=== PATIENT | male | born 1960 | race Asian ===

== ENCOUNTER 2020-03-21 00:52 | Inpatient (IN) | payer OTHER ==
--- NOTE | 2020-03-21 02:00 | PDOC ---
History of Present Illness - General Chief Complaint: Blood Pressure Problem Stated Complaint: PRESSURE PROBLEM - History of Present Illness Initial Comments: 03/21/20 01:53 59yo M with no PMHx due to not consistent follow up and no PCP presents yary s/p reported fall at home w/ consequent syncope. He was walking into the bathroom when he felt dizzy and fell. He went down backwards and towards his Left side, hitting his posterior occiput and Left shoulder. Denies n/v, recent illness (fever, cough, sore throat), palpitations, chest pain, or diaphoresis. He denies similar past episodes. Denies vertiginous symptoms or hearing changes. Past History - Medical History Allergies/Adverse Reactions: Allergies Allergy/AdvReac Type Severity Reaction Status Date / Time No Known Allergies Allergy Verified 03/21/20 03:43 - Psycho-Social/Smoking History Smoking History: Never smoked Have you smoked in the past 12 months: No Information on smoking cessation initiated: No - Substance Abuse Hx (Audit-C & DAST Scrn) How often the patient has a drink containing alcohol: Never Score: In Men: 4 or > Positive; In Women: 3 or > Positive: 0 Screen Result (Pos requires Nsg. Audit-10AR): Negative In the last yr the pt used illegal drug/Rx for NonMed reason: No Score: Yes response is considered Positive: 0 Screen Result (Positive result requires Nsg. DAST-10): Negative Review of Systems - Review of Systems Able to Perform ROS?: Yes Is the patient limited Nauruan proficient: No Constitutional: No: Chills, Diaphoresis, Fever, Loss of Appetite HEENTM: No: Symptoms Reported, Nose Congestion, Tinnitus Respiratory: No: Cough, Shortness of Breath, SOB with Exertion, SOB at Rest Cardiac (ROS): Yes: Lightheadedness, Syncope. No: Chest Pain, Edema, Irregular Heart Rate, Palpitations, Chest Tightness ABD/GI: No: Abdominal Distended, Blood Streaked Bowels, Diarrhea, Nausea, Poor Appetite, Vomiting : No: Flank Pain, Hematuria, Incontinence, Pain Musculoskeletal: No: Back Pain Integumentary: Yes: Dryness. No: Bruising Neurological: No: Headache, Numbness, Seizure, Unsteady Gait Endocrine: No: Symptoms Reported Hematologic/Lymphatic: No: Symptoms Reported All Other Systems: Reviewed and Negative *Physical Exam - Vital Signs Last Vital Signs Temp Pulse Resp BP Pulse Ox 98.5 F 94 H 20 119/84 98 03/21/20 01:28 03/21/20 01:28 03/21/20 01:28 03/21/20 01:28 03/21/20 01:28 - Physical Exam General Appearance: Yes: Nourished, Appropriately Dressed, Disheveled. No: Apparent Distress, Alcohol on Breath HEENT: positive: EOMI, JESSIE, Normal ENT Inspection, Normal Voice. negative: Photophobia, Rhinorrhea Neck: positive: Trachea midline. negative: Tender Respiratory/Chest: positive: Lungs Clear, Normal Breath Sounds. negative: Chest Tender Cardiovascular: positive: Regular Rhythm, Regular Rate Gastrointestinal/Abdominal: positive: Normal Bowel Sounds, Soft Musculoskeletal: positive: Normal Inspection, Decreased Range of Motion (L elbow - cannot supinate/pronate L forearm). negative: CVA Tenderness Extremity: positive: Normal Capillary Refill, Normal Inspection, Normal Range of Motion, Tender (L forearm) Integumentary: positive: Normal Color, Dry, Warm Neurologic: positive: offal worker II-XII NML intact, Fully Oriented, Alert, Normal Mood/Affect, Normal Response. negative: Motor Strength 5/5 (4/5 strength L arm) ED Treatment Course - LABORATORY CBC & Chemistry Diagram: 03/21/20 01:53 03/21/20 01:53 - RADIOLOGY Radiology Studies Ordered: Category Date Time Status CXRPORT [CHEST X-RAY PORTABLE*] [RAD] Stat Radiology 03/21/20 01:51 Ordered Medical Decision Making - Medical Decision Making 03/21/20 04:32 59yo M no PMHx due to no follow up presents s/p fall and syncope. Cardiac workup and admit for syncope w/u. Head CT looking for bleed/intracranial mass. Discharge - Discharge Information Problems reviewed: Yes Clinical Impression/Diagnosis: Syncope and collapse Condition: Fair - Admission Yes - Follow up/Referral - Patient Discharge Instructions - Post Discharge Activity
[2020-03-21 02:04] LABS: BASO % 0.2 % (0-2.0); EOS % 0.1 % (0-4.5); HEMATOCRIT 44.2 % (35.4-49); HEMOGLOBIN 14.7 GM/dL (11.7-16.9); LYMPH % 13.5 % (8-40); MCHC 33.2 g/dl (32.0-35.9); MEAN CELL VOLUME 90.5 fl (80-96); MEAN PLT VOLUME 9.5 fl (7.5-11.1); MONO % 5.1 % (3.8-10.2); NEUT % 81.1 % (42.8-82.8); PLATELET COUNT 201 K/MM3 (134-434); RBC 4.88 M/mm3 (4.00-5.60); RDW 14.3 % (11.9-15.9)
[2020-03-21] MEDS ORDERED: ACETAMINOPHEN 1000 MG/100 ML VIAL (NON FORMULARY) IVPB ONE (02:08)
[2020-03-21 02:36] LABS: ALBUMIN 3.4 g/dl (3.4-5.0); ALK PHOS 93 U/L (45-117); ANION GAP 8 MMOL/L (8-16); BILIRUBIN,TOTAL 0.4 mg/dL (0.2-1); CALCIUM 8.9 mg/dL (8.5-10.1); CHLORIDE 108 mmol/L (98-107); CO2 22 mmol/L (21-32); CREATININE 1.1 mg/dL (0.55-1.3); GLUCOSE,RANDOM 126 mg/dL (74-106); N-TERMINAL BNP 11.4 pg/ml (5-125); POTASSIUM 5.2 mmol/L (3.5-5.1); SGOT/AST 30 U/L (15-37); SGPT/ALT 41 U/L (13-61); SODIUM 138 mmol/L (136-145)
--- NOTE | 2020-03-21 02:39 | PDOC ---
Attending Attestation - Resident Resident Name: Hammad Montejo - ED Attending Attestation I have performed the following: I have examined & evaluated the patient, The case was reviewed & discussed with the resident, I agree w/resident's findings & plan, Exceptions are as noted - HPI HPI: 03/21/20 07:00 See resident HPI - Physicial Exam PE: 03/21/20 07:00 Agree with documented exam - Medical Decision Making 03/21/20 07:00 Unwitnessed syncopal event w/o prodrome f/u labs, ct, ekg dispo per clinical course, likely admit Discharge - Discharge Information Problems reviewed: Yes Clinical Impression/Diagnosis: Syncope and collapse Condition: Fair - Follow up/Referral - Patient Discharge Instructions - Post Discharge Activity
[2020-03-21 02:42] LABS: INR 1.01 (0.83-1.09); PROTHROMBIN TIME (PATIENT) 11.9 SEC (9.7-13.0)
[2020-03-21 02:45] LABS: ACTIVATED PTT 36.6 SECONDS (25.2-36.5)
--- NOTE | 2020-03-21 03:51 | HP ---
CHIEF COMPLAINT: PCP: Dr. Jaxon Correa (hasnt seen him in years) HISTORY OF PRESENT ILLNESS: Mr. Dhillon is a 59M w a pmh of anxiety, paranoia, (son claims patient has possible diabetes and htn) BIBEMS for a complaint 1 episode of fainting at home. The patient is a poor historian and collateral information was collected from the patients son over the phone. The patient was reportedly sitting on the couch and had gotten up to go to the bathroom. The patients brother had heard a loud thud and found Mr. Dhillon unconscious on the ground of the bathroom. The patient had hit the back of his head during the fall. He had regained consciousness shortly after being found on the ground and was brought to the emergency department. The patient reports he is able to remember the incident. He endorses developing tunnel vision and becoming dizzy before the fall. The patient reports that he has mild pain on his left elbow and posterior aspect of his skull. The patient and son had confirmed this never happening before. Patient reportedly takes calcium, metformin, Haldol and zoloft on a daily basis according to his son. On presentation the patient appeared to word search and does not elaborate when questions are asked. He says he does not have a primary care physician that he sees and does not have any past medical history or takes any medications. He endorses feeling dizzy during the orthrostatics test, does not feel as if he is capable of sitting at the edge of the bed or standing up by himself. The patient denies n/v/abdominal pain/fever/chills/sob/chest pain/changes in bowel habits/ or neurological abnormalities Recent Travel: denies PAST MEDICAL HISTORY: PAST SURGICAL HISTORY: Social History: Smokinppd/20yrs Alcohol: no Drugs: no Allergies No Known Allergies Allergy (Verified 03/21/20 03:43) HOME MEDICATIONS: REVIEW OF SYSTEMS CONSTITUTIONAL: Absent: fever, chills, diaphoresis, generalized weakness, malaise, loss of appetite, weight change HEENT: pain on posterior head CARDIOVASCULAR: Absent: chest pain, syncope, palpitations, irregular heart rate, lightheadedness, peripheral edema RESPIRATORY: Absent: cough, shortness of breath, dyspnea with exertion, orthopnea, wheezing, stridor, hemoptysis GASTROINTESTINAL: Absent: abdominal pain, abdominal distension, nausea, vomiting, diarrhea, constipation, melena, hematochezia GENITOURINARY: Absent: dysuria, frequency, urgency, hesitancy, hematuria, flank pain, genital pain PHYSICAL EXAMINATION Vital Signs - 24 hr 03/21/20 01:28 Temperature 98.5 F Pulse Rate 94 H Respiratory 20 Rate Blood Pressure 119/84 O2 Sat by Pulse 98 Oximetry (%) GENERAL: Awake, alert, and fully oriented, in no acute distress. HEAD: abrasions on posterior aspect of head EYES: Pupils equal, round and reactive to light, extraocular movements intact, sclera anicteric, conjunctiva clear. No lid lag. LUNGS: Breath sounds equal, clear to auscultation bilaterally. No wheezes, and no crackles. No accessory muscle use. HEART: Regular rate and rhythm, normal S1 and S2 without murmur, rub or gallop. LOWER EXTREMITIES: 2+ pulses, warm, well-perfused. No calf tenderness. No peripheral edema. NEUROLOGICAL: Cranial nerves II-XII intact. Normal speech. Normal gait. Laboratory Results - last 24 hr 03/21/20 03/21/20 03/21/20 01:53 01:53 01:53 WBC 14.0 H RBC 4.88 Hgb 14.7 Hct 44.2 MCV 90.5 MCH 30.0 MCHC 33.2 RDW 14.3 Plt Count 201 MPV 9.5 Absolute Neuts (auto) 11.3 H Neutrophils % 81.1 Lymphocytes % 13.5 Monocytes % 5.1 Eosinophils % 0.1 Basophils % 0.2 Nucleated RBC % 0 PT with INR 11.90 INR 1.01 PTT (Actin FS) 36.6 H Sodium 138 Potassium 5.2 H Chloride 108 H Carbon Dioxide 22 Anion Gap 8 BUN 13.0 Creatinine 1.1 Est GFR (CKD-EPI)AfAm 85.31 Est GFR (CKD-EPI)NonAf 73.61 Random Glucose 126 H Calcium 8.9 Total Bilirubin 0.4 AST 30 ALT 41 Alkaline Phosphatase 93 Creatine Kinase 258 Creatine Kinase Index 1.1 CK-MB (CK-2) 3.0 Troponin I < 0.02 B-Natriuretic Peptide 11.4 Total Protein 7.0 Albumin 3.4 ASSESSMENT/PLAN: Mr. Dhillon is a 59M w a pmh of anxiety, paranoia, (son claims patient has possible diabetes and htn) BIBEMS for a complaint 1 episode of fainting at home admitted for syncope work up. # syncope - Negative orthostatics - admit to tele - consult cardiology - EKG shows small ST wave elevations in V5 <2mm without evidence in reciprocal leads - carotid dopplar - echo - follow troponins - fall precautions - Negative Head CT - NS at 83 - TSH #DVTppx - Heparin Sq #FEN - Sodium controlled diet - elevated K - hemolyzed - will follow morning labs ATTENDING PHYSICIAN STATEMENT I saw and evaluated the patient. I reviewed the resident's note and discussed the case with the resident. I agree with the resident's findings and plan as documented. SUBJECTIVE: OBJECTIVE: ASSESSMENT AND PLAN:
[2020-03-21] MEDS ORDERED: ACETAMINOPHEN INJECTION 100 ML IVPB ONE (04:28)
--- OUTSIDE RECORDS SUMMARY | 2020-03-21 04:56 | XMS ---
:1960 Author Organization [facility] Support Name Relationship Address Phone PALOMA STAMPING Unavailable [address] [phone] [place] [address] ZAKI COTTO UNKNOWN [address] [facility] [address] [address] Re-disclosure Warning The records that you are about to access may contain information from federally- assisted alcohol or drug abuse programs. If such information is present, then the following federally mandated warning applies: This information has been disclosed to you from records protected by federal confidentiality rules (42 CFR part 2). The federal rules prohibit you from making any further disclosure of this information unless further disclosure is expressly permitted by the written consent of the person to whom it pertains or as otherwise permitted by 42 CFR part 2. A general authorization for the release of medical or other information is NOT sufficient for this purpose. The Federal rules restrict any use of the information to criminally investigate or prosecute any alcohol or drug abuse patient.The records that you are about to access may contain highly sensitive health information, the redisclosure of which is protected by Article 27-F of the [facility] Public Health law. If you continue you may haveaccess to information: Regarding HIV / AIDS; Provided by facilities licensed or operated by the [facility] Office of Mental Health; or Provided by the [facility] Office for People With Developmental Disabilities. If such information is present, then the following [facility] mandated warning applies: This information has been disclosed to you from confidential records which are protected by state law. State law prohibits you from making any further disclosure of this information without the specific written consent of the person to whom it pertains, or as otherwise permitted by law. Any unauthorized further disclosure in violation of state law may result in a fine or mcfp sentence or both. A general authorization for the release of medical or other information is NOT sufficient authorization for further disclosure. Insurance Providers Payer name Policy type Policy ID Covered Covered green party's Policy P tanya / Coverage green party ID relationship to Cool Inf ormation type cool SELF PAY SP INSURANCE
--- NOTE | 2020-03-21 05:02 | PN ---
Teaching Attending Note Name of Resident: Luiz Wang ATTENDING PHYSICIAN STATEMENT I saw and evaluated the patient. I reviewed the resident's note and discussed the case with the resident. I agree with the resident's findings and plan as documented. SUBJECTIVE: 59 Y/O M with no PMHx and poor follow up came in w/ c/c dizziness and Syncope x1 episode . OBJECTIVE: VS: Afeb HR 94 BP 119/84 Labs: WBC 14 H/H wnl K 5.2 hemolyzed Na 138 Glucose [address] Head- no evidence of acute pathology ASSESSMENT AND PLAN: Syncope- Vasovagal vs Orthostatic vs Cardiac etiology Telemetry EKG , Trop x 3 Q 6 hr Orthostatic VS TSH TTE IV LR @ 83 cc/hr Repeat WBC - asymptomatic no abx for now Supp care: DVT Px HSQ 5K BID Diet regular
--- OUTSIDE RECORDS SUMMARY | 2020-03-21 05:08 | XMS ---
:1960 Author Organization [facility] Support Name Relationship Address Phone PALOMA STAMPING Unavailable [address] [place] [address] ZAIK COTTO UNKNOWN [address] [facility] [address] [address] Re-disclosure Warning The records that you are [...] protected by Article 27-F of the [facility] Public Health law. If you continue you may haveaccess to information: Regarding HIV / AIDS; Provided by facilities licensed or operated by the [facility] Office of Mental Health; or Provided by the [facility] Office for People With Developmental Disabilities. If such information is present, then the following [facility] mandated warning applies: This information has been [...] law may result in a fine or retirement sentence or both. A general authorization for the release of medical or other information is NOT sufficient authorization for further disclosure. Insurance Providers Payer name Policy type Policy ID Covered Covered democrat's Policy P tanya / Coverage democrat ID relationship to Cool Inf ormation type cool SELF PAY SP INSURANCE
[2020-03-21 05:35] VITALS: BMI 24.3
[2020-03-21] MEDS: HEPARIN NA (PORCINE) 5,000 UNITS/ML 1ML VIAL SQ SCH ×3 (05:52→23:11)
[2020-03-21] MEDS: SODIUM CHLORIDE 1,000 ML IV SCH (05:52)
--- NOTE | 2020-03-21 09:06 | CON.CARD ---
Consult Consult Specialty:: Cardiology Referred by:: Hospitalist Medicine Reason for Consultation:: Syncope - History of Present Illness Chief Complaint: Syncope History of Present Illness: 59yo M with pmh of anxiety, paranoia, DM2, hyperlipidemia presented with syncope and fall. He was walking into the bathroom when he felt dizzy, developed tunnel vision and fell. He went down backwards and towards his Left side, hitting his p osterior occiput and Left shoulder, subjective orthostasis on exam, nausea and emesis earlier. Denies palpitations, chest pain, or diaphoresis. He denies similar past episodes. Denies vertiginous symptoms or hearing changes. - History Source History Provided By: Patient Limitations to Obtaining History: No Limitations - Smoking History Smoking history: Current every day smoker Have you smoked in the past 12 months: Yes Aproximately how many cigarettes per day: 10 Home Medications - Allergies Allergies/Adverse Reactions: Allergies Allergy/AdvReac Type Severity Reaction Status Date / Time No Known Allergies Allergy Verified 03/21/20 03:43 - Home Medications Home Medications: Ambulatory Orders Atorvastatin Ca [Lipitor] 40 mg PO HS 03/21/20 Haloperidol [Haldol -] 0.5 mg PO BID 03/21/20 Metformin HCl [Glucophage] 500 mg PO 03/21/20 Sertraline HCl 25 mg PO 03/21/20 Review of Systems - Review of Systems Eyes: reports: Other (Visual scotoma) Gastrointestinal: reports: Nausea, Vomiting Neurological: reports: Syncope Vital Signs: Vital Signs Temperature 98.6 F 03/21/20 05:26 Pulse Rate 90 03/21/20 05:26 Respiratory Rate 18 03/21/20 05:26 Blood Pressure 120/87 03/21/20 05:26 O2 Sat by Pulse Oximetry (%) 98 03/21/20 05:28 Constitutional: Yes: No Distress, Calm Neck: Yes: Supple Respiratory: Yes: Regular, CTA Bilaterally, On Nasal O2 Gastrointestinal: Yes: Soft, Hypoactive Bowel Sounds Cardiovascular: Yes: Regular Rate and Rhythm JVD: No Carotid Bruit: No Heart Sounds: Yes: S1, S2 Edema: No - Other Data Labs, Other Data: CBC, BMP 03/21/20 01:53 03/21/20 01:53 INR, PTT INR 1.01 (0.83-1.09) 03/21/20 01:53 Troponin, BNP 03/21/20 01:53 Troponin I < 0.02 B-Natriuretic Peptide 11.4 Troponin, BNP 03/21/20 01:53 Troponin I < 0.02 B-Natriuretic Peptide 11.4 NSR @ [address] changes Tele: NSR Imaging - Results Chest X-ray: Report Reviewed (NAD) Cat Scan: Report Reviewed (HCT: No bleed) Problem List - Problems (1) Hyperlipidemia Code(s): E78.5 - HYPERLIPIDEMIA, UNSPECIFIED Qualifiers: Hyperlipidemia type: pure hypercholesterolemia Qualified Code(s): E78.00 - Pure hypercholesterolemia, unspecified; E78.0 - Pure hypercholesterolemia (2) Type 2 diabetes mellitus Code(s): E11.9 - TYPE 2 DIABETES MELLITUS WITHOUT COMPLICATIONS Qualifiers: Diabetes mellitus superintendent marine oil terminal insulin use: without halfway use Diabetes mellitus complication status: without complication Qualified Code(s): E11.9 - Type 2 diabetes mellitus without complications (3) Syncope and collapse Code(s): R55 - SYNCOPE AND COLLAPSE Assessment/Plan 03/21/2020 Echo: Normal biventricular size and fxn, mod LAE, mild MR, TR 1. Syncope orthostatic hypotension vs vasovagal with typical prodrome including nausea/emesis, arrhythmias less likely 2. Type 2 DM 3. Hyperlipidemia P:1. Volume resuscitation as you are 2. lunchroom monitor for bradyarrhythmia/pauses 3. Addressed abortive maneuvers once prodromal sxs have been experienced 4. Anticipate d/c in AM 5. Thank you for consultative opportunity
[2020-03-21] MEDS ORDERED: ONDANSETRON 4 MG/2 ML VIAL ONE (09:38)
[2020-03-21] MEDS ORDERED: ONDANSETRON 4 MG/2 ML VIAL IVPUSH ONE (09:45)
[2020-03-21 10:19] LABS: HEMATOCRIT 45.6 % (35.4-49); HEMOGLOBIN 14.8 GM/dL (11.7-16.9); MCHC 32.4 g/dl (32.0-35.9); MEAN CELL VOLUME 89.5 fl (80-96); MEAN PLT VOLUME 9.1 fl (7.5-11.1); PLATELET COUNT 232 K/MM3 (134-434); RDW 14.6 % (11.9-15.9); WHITE BLOOD COUNT 12.3 K/mm3 (4.0-10.0)
--- NOTE | 2020-03-21 10:28 | EKG ---
Test Reason : Blood Pressure : / mmHG Vent. Rate : 087 BPM Atrial Rate : 087 BPM P-R Int : 162 ms QRS Dur : 072 ms QT Int : 378 ms P-R-T Axes : 061 048 047 degrees QTc Int : 454 ms NORMAL SINUS RHYTHM NONSPECIFIC ST ABNORMALITY ABNORMAL ECG WHEN COMPARED WITH ECG OF 21-MAR-2020 01:39, NO SIGNIFICANT CHANGE WAS FOUND Confirmed by EYAD JOHNSON MD ([id number]) on 03/21/2020 10:28:04 AM Referred By: Confirmed By:EYAD JOHNSON MD
--- NOTE | 2020-03-21 10:31 | EKG ---
Test Reason : Blood Pressure : / mmHG Vent. Rate : 092 BPM Atrial Rate : 092 BPM P-R Int : 144 ms QRS Dur : 074 ms QT Int : 342 ms P-R-T Axes : 035 061 048 degrees QTc Int : 422 ms NORMAL SINUS RHYTHM ST ELEVATION, CONSIDER EARLY REPOLARIZATION, PERICARDITIS, OR INJURY ABNORMAL ECG Confirmed by EYAD JOHNSON MD ([id number]) on 03/21/2020 10:30:36 AM Referred By: Confirmed By:EYAD JOHNSON MD
[2020-03-21 10:48] LABS: ALBUMIN 3.3 g/dl (3.4-5.0); ALK PHOS 99 U/L (45-117); ANION GAP 7 MMOL/L (8-16); BILIRUBIN,TOTAL 0.5 mg/dL (0.2-1); BLOOD UREA NITROGEN 10.1 mg/dL (7-18); CALCIUM 8.6 mg/dL (8.5-10.1); CHLORIDE 107 mmol/L (98-107); CHOLESTEROL 105 mg/dL (50-200); CO2 22 mmol/L (21-32); CREATININE 0.9 mg/dL (0.55-1.3); GLUCOSE,RANDOM 129 mg/dL (74-106); HDL CHOLESTEROL 38 mg/dL (40-60); LDL CHOLESTEROL (ONLY SJRH) 60 mg/dL (5-100); MAGNESIUM 2.5 mg/dL (1.8-2.4); PHOSPHOROUS 2.7 mg/dL (2.5-4.9); POTASSIUM 4.1 mmol/L (3.5-5.1); SGOT/AST 26 U/L (15-37); SGPT/ALT 38 U/L (13-61); SODIUM 136 mmol/L (136-145); TOT PROT 6.9 g/dl (6.4-8.2); TRIGLYCERIDES 79 mg/dL (0-150)
--- NOTE | 2020-03-21 11:51 | PN ---
Teaching Attending Note Name of Resident: Lanny Millan ATTENDING PHYSICIAN STATEMENT I saw and evaluated the patient. I reviewed the resident's note and discussed the case with the resident. I agree with the resident's findings and plan as documented. SUBJECTIVE: No fever or chills at home or in hospital. has nausea and vomiting after breakf astt delaney. No GUERRERO , no abd pain, denies dysuria or polyuria. has no Cp , no SOB, no change in vision or GUERRERO. has no weakness. he remembers havign tunnel vision before syncope. brother found him , ? 20 min later. No previous syncopal episodes, no clear medical follow up or medical hx. he feels very light headed when he was asked to sit up and started vomiting during interview. no vertigo. has pain in L elbow. OBJECTIVE: pale, sweaty , poor dentition, missing teeth. awake all the time. got light headed with sitting up and started vomiting. (non bloody non bilious emesis ) MMM. unicteric sclera. CV: RRR, no MRG Lungs: CTAB ABd: decreased bowel sounds in all quadrants. NT, ND. Ext : No edema or erythema on upper or lower extremitis . Neuro: EOMI, no facial droop, nl facial sensation , round pupils. tongue at mid line. Strength: RUE: 5/5 shoulder shrug, shoulder abduction and flexion, biceps, and triceps, and normal hand hydraulic jack adjuster. LUE: 5/5 shoulder shrug. limited mobility to LUE due to elbow pain, hand hydraulic jack adjuster normal . reflexes 2+ bicep, BR, knee jerk B/L. Nl nose to finger ASSESSMENT AND PLAN: 59 y/o man with unclear medical history and no medical follow up who presented with syncopal episode while walking [place] at night . 1- Syncope, most likely diagnosis is orthostatic hypotension ( happened after getting up at night, got dizzy with siting up today ) . vasovagal and arrhythmias are less likely. need to r/o arrhythmias. doubt seizure or stroke Was unable to obtain orthostatis VS during interview due to vomiting and severe light headedness. - give IVF. - perform Orthostatic VS - echo pending - cont tele monitoring - EKG done during interview, which showed J point elevation in V4,5,6. nl axis, sinus rhythm. EKG on admisison reviewd, also withJ point elevation - repeat trop- CUS pending. 2- N/V : Not sure of etiology. BS are hypoactive, need to r/o ileus. doubt any systemic infection . EKG with no change and ACS is unlikely. - give IVF. -liquid diet for now. - obtain KUB. - monitor 3- Leukocysotsis : no source of infection. might be stress induced . - follow off Abx. - perform UA 4- Hyperkalemia: unclear etiology. - check CPK - repeat K level 5- A1c : 6, ---> pre-diabetes dispo : HLOC. Team Will speak to son and obtain more history about meds, PMH, and other info regarding presentation
--- NOTE | 2020-03-21 13:00 | ECHO ---
Version: 1 Name: ADITYA COTTO Exam: Adult Echocardiogram Study Date: 03/21/2020, 12:09 PM Age: 59 Years MMode/2D Measurements & Calculations IVSd: 1.01 cm LVIDs: 2.6 cm LVIDd: 3.8 cm LVPWd: 0.94 cm LAV (MOD-bp): 54.0 ml ACS: 1.65 cm Ao root diam: 3.0 cm LVOT diam: 2.08 cm LA dimension: 4.1 cm Doppler Measurements & Calculations MV E max chilango: 74.5 cm/sec Med E/e': 10.1 MV A max chilango: 68.1 cm/sec Med Peak E' Chilango: 7.4 cm/sec MV E/A: 1.09 Lat E/e': 6.9 Lat Peak E' Chilango: 10.8 cm/sec Ao max P.7 mmHg LAUREL(I,D): 2.48 cm Ao mean P.4 mmHg LV V1 mean: 62.2 cm/sec Ao V2 max: 129.0 cm/sec LV V1 mean P.86 mmHg PI end-d chilango: 92.3 cm/sec TR max chilango: 206.8 cm/sec TR max P.3 mmHg Left Ventricle Left ventricular systolic function is grossly normal. Ejection Fraction = 55-60%. The transmitral sp ectral Doppler flow pattern is normal for age. Right Ventricle The right ventricle is grossly normal size. The right ventricular systolic function is grossly thomas l. Atria The left atrium is moderately dilated. Right atrial size is normal. Mitral Valve There is no mitral valve stenosis. There is mild mitral regurgitation. Tricuspid Valve The tricuspid valve is normal in structure and function. There is mild tricuspid regurgitation. Righ t ventricular systolic pressure is normal. Aortic Valve There is mild aortic sclerosis.;. No hemodynamically significant valvular aortic stenosis. No aortic regurgitation is present. Pulmonic Valve There is no pulmonic valvular stenosis. Trace pulmonic valvular regurgitation. Great Vessels The aortic root is normal size. Normal IVC size and contractility. Pericardium/Pleura There is no pericardial effusion. Tech Comments TDS due to orientation of patient's heart. Summary Statements Left ventricular systolic function is grossly normal. Ejection Fraction = 55-60%. The left atrium is moderately dilated. There is mild mitral regurgitation. There is mild tricuspid regurgitation. Right ventricular systolic pressure is normal. There is mild aortic sclerosis.; The aortic root is normal size. There is no pericardial effusion. MD Parry *Miguel Angel 03/21/2020, 12:59 PM Ordering Physician: Keara Suarez Referring Physician: KEARA SUAREZ Performed By: Rebecca Baez
[2020-03-21] MEDS ORDERED: ACETAMINOPHEN 325 MG TABLET (FP) ONE (14:29)
[2020-03-21] MEDS ORDERED: ACETAMINOPHEN 325 MG TABLET (FP) PO PRN (14:53)
--- NOTE | 2020-03-21 15:55 | PN ---
Physical Exam: SUBJECTIVE: Patient seen and examined at bedside, denies any prior episodes of syncope, reports that he had LOC for 10-15 min. During examination, patient had dizziness and nausea on sitting up, but was not able to get orthostatic due to vomiting. Patient is a poor historian. Called his son ZAKI for further information: per son, his farther lives with his mother and brother at home. uncle heard two loud noises in the upstairs bathroom. He ran upstairs and the bathroom door was locked. Uncle kicked opened the bathroom door and found his dad on the floor. Uncle was able to wake him up and place him on a chair. per uncle, his father reported head trauma and the EMS was called. Son received a call from the uncle regarding the event. Son also reports that his father was diagnosed with paranoid schizophrenia for 18 years and was treated with multiple antipsychotic medications (risperidone, aripiprazole and Benztropine for most likely EPS) until he started seeing another Psychiatrist at [facility], who thought the diagnosis was not accurate(only mild form for paranoia). Changed his medications to Haldol only. He started taking haldol 6 months ago. Son reports initially he was treated with a high dose of haldol and subsequently, he experienced nausea/vomiting, light headedness and anxiety. Symptoms resolved after decreasing the dose of haldol. He was on haldol and zoloft for 3 months and was not able to make an appointment for the last 2 moths to fill his prescriptions, due to COVID-19. He started taking Haldol and zoloft again 1 week ago, Last visit March 15. OBJECTIVE: Vital Signs Period Temp Pulse Resp BP Sys/Hernandez Pulse Ox Last 24 Hr 98.2 F-99.0 F 79-98 18-20 119-134/83-87 95-99 GENERAL: The patient is awake, alert, and fully oriented. Poor dentition HEAD: Normal with no signs of trauma. EYES: PERRL, extraocular movements intact, sclera anicteric, conjunctiva clear. No ptosis, facial droop ENT: Ears normal, nares patent, oropharynx clear without exudates, moist mucous membranes. NECK: Trachea midline, full range of motion, supple. LUNGS: Breath sounds equal, clear to auscultation bilaterally, no wheezes, no crackles, no accessory muscle use. HEART: Regular rate and rhythm, S1, S2 without murmur, rub or gallop. ABDOMEN: Soft, nontender, nondistended, hypoactive bowel sounds, no guarding, no rebound, no hepatosplenomegaly, no masses. EXTREMITIES: 2+ pulses, warm, well-perfused, no edema. NEUROLOGICAL: Cranial nerves II through XII grossly intact. Normal speech, gait not observed. strength 5/5 in all extremities PSYCH: Normal mood, normal affect. SKIN: Warm, dry,generalized pale skin, no rashes or lesions noted Laboratory Results - last 24 hr 03/21/20 03/21/20 03/21/20 01:53 01:53 01:53 WBC 14.0 H RBC 4.88 Hgb 14.7 Hct 44.2 MCV 90.5 MCH 30.0 MCHC 33.2 RDW 14.3 Plt Count 201 MPV 9.5 Absolute Neuts (auto) 11.3 H Neutrophils % 81.1 Lymphocytes % 13.5 Monocytes % 5.1 Eosinophils % 0.1 Basophils % 0.2 Nucleated RBC % 0 PT with INR 11.90 INR 1.01 PTT (Actin FS) 36.6 H Sodium 138 Potassium 5.2 H Chloride 108 H Carbon Dioxide 22 Anion Gap 8 BUN 13.0 Creatinine 1.1 Est GFR (CKD-EPI)AfAm 85.31 Est GFR (CKD-EPI)NonAf 73.61 Random Glucose 126 H Hemoglobin A1c % Calcium 8.9 Phosphorus Magnesium Total Bilirubin 0.4 AST 30 ALT 41 Alkaline Phosphatase 93 Creatine Kinase 258 Creatine Kinase Index 1.1 CK-MB (CK-2) 3.0 Troponin I < 0.02 B-Natriuretic Peptide 11.4 Total Protein 7.0 Albumin 3.4 Triglycerides Cholesterol Total LDL Cholesterol HDL Cholesterol TSH 03/21/20 03/21/20 03/21/20 09:48 09:48 09:48 WBC 12.3 H RBC 5.10 Hgb 14.8 Hct 45.6 MCV 89.5 MCH 29.0 MCHC 32.4 RDW 14.6 Plt Count 232 MPV 9.1 Absolute Neuts (auto) Neutrophils % Lymphocytes % Monocytes % Eosinophils % Basophils % Nucleated RBC % PT with INR INR PTT (Actin FS) Sodium 136 Potassium 4.1 Chloride 107 Carbon Dioxide 22 Anion Gap 7 L BUN 10.1 Creatinine 0.9 Est GFR (CKD-EPI)AfAm 108.73 Est GFR (CKD-EPI)NonAf 93.82 Random Glucose 129 H Hemoglobin A1c % 6.0 Calcium 8.6 Phosphorus 2.7 Magnesium 2.5 H Total Bilirubin 0.5 AST 26 ALT 38 Alkaline Phosphatase 99 Creatine Kinase 454 H Creatine Kinase Index 0.7 CK-MB (CK-2) 3.5 Troponin I < 0.02 B-Natriuretic Peptide Total Protein 6.9 Albumin 3.3 L Triglycerides 79 Cholesterol 105 Total LDL Cholesterol 60 HDL Cholesterol 38 L TSH 0.65 Active Medications Generic Name Dose Route Start Last Admin Trade Name Freq PRN Reason Stop Dose Admin Acetaminophen 650 mg 03/21/20 14:53 Tylenol - PO Q6H PRN PAIN LEVEL 4 - 6 Heparin Sodium (Porcine) 5,000 unit 03/21/20 06:00 03/21/20 13:21 Heparin - SQ 5,000 unit TID RAUDEL Administration Sodium Chloride 1,000 mls @ 83 mls/hr 03/21/20 05:30 03/21/20 05:52 Normal Saline - IV 83 mls/hr ASDIR RAUDEL Administration ASSESSMENT/PLAN: 59 Y M w a PMH of anxiety, paranoia, HLD, and pre-Diabetes(home med: metformin), presents s/p unwitnessed fall and admitted for a syncope work up. # syncope - Likely due to Orthostatic hypotention vs antipsychotic medical regimen Haldol (adverse effect) - Patient started to feel lightheadedness vomited multiple times, NBNB when he was sitting up from laying down - Unable to obtain Orthostatic vitals due to active nausea and vomiting - cardiology, Dr. Dos Santos, is following - EKG shows: NSR with J point elevation in V4,5,6. trop negative x 2 - carotid Doppler and Echo: pending - Head CT: no acute pathology #Nausea/vomiting - Unclear etiology, likely an adverse effect of Haldol (recently re-started), prior nausea/vomiting due to high dose of haldol, per son - Ordered KUB, patient did not want to go to imaging - will continue IVF, and monitor electrolytes #Hx of Paranoia #Anxiety - Home meds: Haldol 0.5 mg BID, Zoloft 25mg QD - Consulted Psych for further recs regarding his medical regimen #Hx of HLD - Continue Lipitor 40 mg QD #Hx of pre-Diabetes - holding home med for now(metformin 500mg QD) - HbA1c 6.0 DVTppx - Heparin Sq FEN - NS @83 mls/hr - Will continue to monitor electrolytes - Full liquid diet for now, vomiting Dispo - will continue to monitor in Tele Visit type - Emergency Visit Emergency Visit: Yes ED Registration Date: 03/21/20 Care time: The patient presented to the Emergency Department on the above date and was hospitalized for further evaluation of their emergent condition. - New Patient This patient is new to me today: No - Critical Care Critical Care patient: No - Discharge Referral Referred to [facility] Med P.C.: No ATTENDING PHYSICIAN STATEMENT I saw and evaluated the patient. I reviewed the resident's note and discussed the case with the resident. I agree with the resident's findings and plan as documented. SUBJECTIVE: OBJECTIVE: ASSESSMENT AND PLAN:
[2020-03-21 16:25] LABS: PH,URINE 5.5 (5.0-8.0); URINE APPEARANCE CLEAR; URINE BILIRUBIN NEGATIVE (NEGATIVE); URINE COLOR YELLOW; URINE GLUCOSE (UA) NEGATIVE (NEGATIVE); URINE KETONE TRACE (NEGATIVE); URINE LEUK ESTERASE NEGATIVE (NEGATIVE); URINE NITRITE NEGATIVE (NEGATIVE); URINE PROTEIN NEGATIVE (NEGATIVE); URINE UROBILINOGEN 0.2 mg/dL (0.2-1.0)
[2020-03-21 16:38] LABS: COCAINE, UR NEGATIVE ng/ml (CUTOFF=300); PHENCYCLIDINE,URINE NEGATIVE ng/ml (CUTOFF=25); URINE AMPHETAMINES NEGATIVE ng/ml (CUTOFF=500); URINE BARBITURATES NEGATIVE ng/ml (CUTOFF=200); URINE BENZODIAZEPINES NEGATIVE ng/ml (CUTOFF=200)
[2020-03-21 17:21] LABS: METHADONE, UR NEGATIVE ng/ml (CUTOFF=300); OPIATES, URI NEGATIVE ng/ml (CUTOFF=300)
[2020-03-21] MEDS: SERTRALINE HCL 25 MG TABLET (FP) PO SCH (17:47)
[2020-03-21] MEDS ORDERED: PT OWN MED DRAWER 7, Y5N ONE ×2 (17:48→22:40)
[2020-03-21] MEDS: HALOPERIDOL 0.5 MG TABLET PO SCH (23:10)
[2020-03-21] MEDS: ATORVASTATIN CA 40 MG TABLET (FP) PO SCH (23:11)
--- NOTE | 2020-03-22 01:05 | PN ---
Progress Note (short form) - Note Progress Note: Patient examined at bedside status post- brain MRI. Patient reports no further episodes of vomiting. States he is feeling better with improvement of lightheadedness. Phys exam: Gen: lying in bed in no acute distress Neuro: No dysdiadokinesia/ dysmetria. Sensation intact throughout. Motor exam WNL. CN2-12 wnl. MRI brain: Evaluation is somewhat limited due to persistent motion artifact (secondary to claustrophobia as per the MRI staff). There is no definite MRI ev idence of acute infarction. A very small acute infarct may not be demonstrable on this exam due to motion artifact. If clinically indicated correlate with follow-up MRI possibly utilizing sedation. No gross mass lesion is identified within the limitations of the study. There is no obstructive hydrocephalus
[2020-03-22] MEDS: SODIUM CHLORIDE 1,000 ML IV SCH (06:42)
[2020-03-22 06:59] LABS: BASO % 0.2 % (0-2.0); EOS % 0.4 % (0-4.5); HEMATOCRIT 40.4 % (35.4-49); HEMOGLOBIN 13.5 GM/dL (11.7-16.9); LYMPH % 33.3 % (8-40); MCH 29.8 pg (25.7-33.7); MCHC 33.5 g/dl (32.0-35.9); MEAN PLT VOLUME 9.1 fl (7.5-11.1); MONO % 9.3 % (3.8-10.2); NEUT % 56.8 % (42.8-82.8); PLATELET COUNT 191 K/MM3 (134-434); RBC 4.54 M/mm3 (4.00-5.60); RDW 14.7 % (11.9-15.9); WHITE BLOOD COUNT 8.5 K/mm3 (4.0-10.0)
[2020-03-22] MEDS: HEPARIN NA (PORCINE) 5,000 UNITS/ML 1ML VIAL SQ SCH ×3 (07:03→22:05)
[2020-03-22 07:25] LABS: ALBUMIN 2.9 g/dl (3.4-5.0); BILIRUBIN,TOTAL 0.5 mg/dL (0.2-1); CALCIUM 8.2 mg/dL (8.5-10.1); CREATININE 0.7 mg/dL (0.55-1.3); MAGNESIUM 2.4 mg/dL (1.8-2.4); PHOSPHOROUS 2.6 mg/dL (2.5-4.9); POTASSIUM 3.7 mmol/L (3.5-5.1); TOT PROT 6.2 g/dl (6.4-8.2)
[2020-03-22] MEDS ORDERED: PT OWN MED DRAWER 7, Y5N ONE ×3 (09:21→22:03)
[2020-03-22] MEDS: SERTRALINE HCL 25 MG TABLET (FP) PO SCH (10:30)
--- NOTE | 2020-03-22 10:37 | PN ---
Progress Note, Physician Chief Complaint: Events noted Not in distress History of Present Illness: Patient was seen and examined. Awake and alert. Chart was reviewed Denies chest pain, SOB or palpitations - Current Medication List Current Medications: Active Medications Acetaminophen (Tylenol -) 650 mg PO Q6H PRN PRN Reason: PAIN LEVEL 4 - 6 Last Admin: 03/21/20 15:01 Dose: 650 mg Documented by: Atorvastatin Calcium (Lipitor -) 40 mg PO HS [facility] Last Admin: 03/21/20 23:11 Dose: 40 mg Documented by: Haloperidol (Haldol -) 0.5 mg PO BID [facility] Last Admin: 03/21/20 23:10 Dose: 0.5 mg Documented by: Heparin Sodium (Porcine) (Heparin -) 5,000 unit SQ TID [facility] Last Admin: 03/22/20 07:03 Dose: 5,000 unit Documented by: Sodium Chloride (Normal Saline -) 1,000 mls @ 83 mls/hr IV ASDIR [facility] Last Admin: 03/22/20 06:42 Dose: Not Given Documented by: Sertraline HCl (Zoloft -) 25 mg PO DAILY [facility] Last Admin: 03/22/20 10:30 Dose: 25 mg Documented by: - Objective Vital Signs: Vital Signs Temperature 98.5 F 03/22/20 02:00 Pulse Rate 69 03/22/20 06:00 Respiratory Rate 18 03/22/20 06:00 Blood Pressure 128/72 03/22/20 06:00 O2 Sat by Pulse Oximetry (%) 100 03/21/20 20:59 Neck: Yes: Supple Cardiovascular: Yes: Regular Rate and Rhythm, S1, S2 Respiratory: Yes: CTA Bilaterally Gastrointestinal: Yes: Normal Bowel Sounds, Soft. No: Tenderness Edema: No Additional Findings/Remarks: - Review of Systems Constitutional: denies: Chills, Fever Cardiovascular: denies: Shortness of Breath. denies: Chest Pain, Palpitations Respiratory: denies: Cough, SOB. denies: Hemoptysis, Orthopnea, PND, Wheezing Gastrointestinal: denies: Abdominal Pain, Constipation, Diarrhea, Melena, Nausea, Rectal Bleeding, Vomiting Musculoskeletal: denies: Back Pain, Joint Pain Neurological: denies: Dizziness, Headache, Seizure, Syncope Labs: CBC, BMP 03/22/20 05:55 03/22/20 05:55 INR, PTT INR 1.01 (0.83-1.09) 03/21/20 01:53 Problem List - Problems (1) Hyperlipidemia Code(s): E78.5 - HYPERLIPIDEMIA, UNSPECIFIED Qualifiers: Hyperlipidemia type: pure hypercholesterolemia Qualified Code(s): E78.00 - Pure hypercholesterolemia, unspecified; E78.0 - Pure hypercholesterolemia (2) Syncope and collapse Code(s): R55 - SYNCOPE AND COLLAPSE (3) Type 2 diabetes mellitus Code(s): E11.9 - TYPE 2 DIABETES MELLITUS WITHOUT COMPLICATIONS Qualifiers: Diabetes mellitus fdc insulin use: without fdc use Diabetes mellitus complication status: without complication Qualified Code(s): E11.9 - Type 2 diabetes mellitus without complications Assessment/Plan 1. Syncope - orthostatic hypotension vs. vasovagal 2. Type 2 DM 3. Hyperlipidemia PLAN: 1. monitoring and evaluation advisor for bradyarrhythmia/pauses - so far uneventful 2. No specific cardiac therapy or intervention at this time 3. Continue Atorvastatin therapy Further cardiac monitoring can be done as outpatient if needed. Fluid resuscitation Discharge planning Giovany Marcus MD
[2020-03-22] MEDS: HALOPERIDOL 0.5 MG TABLET PO SCH ×2 (11:45→22:04)
--- NOTE | 2020-03-22 13:23 | PN ---
Mental Health Exam - Mental Status Exam Alert and Oriented to: Time, Place, Person Cognitive Function: Grossly Intact Patient Appearance: Disheveled Mood: Anxious, Hopeful Affect: Appropriate, Mood Congruent Patient Behavior: Suspicious, Cooperative Speech Pattern: Clear Voice Loudness: Mildly Loud Thought Process: Intact Thought Disorder: Not Present Hallucinations: Denies Suicidal Ideation: Denies Homicidal Ideation: Denies Insight/Judgement: Fair Sleep: Well Appetite: Good Muscle strength/Tone: Mild Hypotonicity Gait/Station: Deferred (This is a 59 yo male admitted after syncope. Client has a history of DM, Lipids, and schizoaffective disorder. he is alert orientated by 3.) Additional Comments: Client is a smoker, but denies other substance use. Client endorsed psychiatry hospital in past, but poor historian. Speaks beninese as a 2nd langauge. His health care proxy, his son RAZIA, spoke with machine sign writer on tel. He verified past medications, no psychosis or depression. [facility] with [employer] in psychiatry Lawanda henderson. Client was discontinued off abilify, risperidone and Cogentin. Last out patient visit was 03/15. MRI complete, shows no mass lesion or acute infaract. Diagnosis..Schizoaffective disorder. Plan.. Continue home meds Haldol 0.5mg po bid and zoloft 25mg po daily. Orthostatic vital signs. ( haldol may lead to low bp but unlikely at such a low dose).
--- NOTE | 2020-03-22 14:49 | PN ---
Physical Exam: SUBJECTIVE: Patient seen and examined at bedside, reports improvement of his nausea, vomiting and lightheadedness, however during PT evaluation, patient was unable to sit up/stand due to feeling lightheadedness, nausea OBJECTIVE: Vital Signs Period Temp Pulse Resp BP Sys/Hernandez Pulse Ox Last 24 Hr 98.5 F-98.9 F 69-82 18-24 125-138/72-87 94-100 GENERAL: The patient is awake, alert, and fully oriented. Poor dentition HEAD: Normal with no signs of trauma. EYES: PERRL, extraocular movements intact, sclera anicteric, conjunctiva clear. No ptosis, facial droop ENT: Ears normal, nares patent, oropharynx clear without exudates, moist mucous membranes. NECK: Trachea midline, full range of motion, supple. LUNGS: Breath sounds equal, clear to auscultation bilaterally, no wheezes, no crackles, no accessory muscle use. HEART: Regular rate and rhythm, S1, S2 without murmur, rub or gallop. ABDOMEN: Soft, nontender, nondistended, hypoactive bowel sounds, no guarding, no rebound, no hepatosplenomegaly, no masses. EXTREMITIES: 2+ pulses, warm, well-perfused, no edema. NEUROLOGICAL: Cranial nerves II through XII grossly intact. Normal speech, gait not observed. strength 5/5 in all extremities PSYCH: Normal mood, normal affect. SKIN: Warm, dry,generalized pale skin, no rashes or lesions noted Laboratory Results - last 24 hr 03/21/20 03/21/20 03/21/20 04:58 14:15 16:00 WBC RBC Hgb Hct MCV MCH MCHC RDW Plt Count MPV Absolute Neuts (auto) Neutrophils % Lymphocytes % Monocytes % Eosinophils % Basophils % Nucleated RBC % Sodium Potassium Chloride Carbon Dioxide Anion Gap BUN Creatinine Est GFR (CKD-EPI)AfAm Est GFR (CKD-EPI)NonAf Random Glucose Calcium Phosphorus Magnesium Total Bilirubin AST ALT Alkaline Phosphatase Creatine Kinase 552 H Creatine Kinase Index 0.5 CK-MB (CK-2) 3.3 Total Protein Albumin Urine Color Yellow Urine Appearance Clear Urine pH 5.5 Ur Specific [place] 1.017 Urine Protein Negative Urine Glucose (UA) Negative Urine Ketones Trace H Urine Blood Negative Urine Nitrite Negative Urine Bilirubin Negative Urine Urobilinogen 0.2 Ur Leukocyte Esterase Negative Opiates Screen Methadone Screen Barbiturate Screen Phencyclidine Screen Ur Amphetamines Screen MDMA (Ecstasy) Screen Benzodiazepines Screen Cocaine Screen U Marijuana (THC) Screen COVID-19 (LIZZIE) Not detected 03/21/20 03/22/20 03/22/20 16:00 05:55 05:55 WBC 8.5 RBC 4.54 Hgb 13.5 Hct 40.4 MCV 89.0 MCH 29.8 MCHC 33.5 RDW 14.7 Plt Count 191 MPV 9.1 Absolute Neuts (auto) 4.8 Neutrophils % 56.8 D Lymphocytes % 33.3 D Monocytes % 9.3 D Eosinophils % 0.4 D Basophils % 0.2 Nucleated RBC % 0 Sodium 140 Potassium 3.7 Chloride 108 H Carbon Dioxide 27 Anion Gap 5 L BUN 7.0 Creatinine 0.7 Est GFR (CKD-EPI)AfAm 120.56 Est GFR (CKD-EPI)NonAf 104.02 Random Glucose 88 Calcium 8.2 L Phosphorus 2.6 Magnesium 2.4 Total Bilirubin 0.5 AST 28 ALT 33 Alkaline Phosphatase 83 Creatine Kinase 565 H Creatine Kinase Index 0.4 CK-MB (CK-2) 2.6 Total Protein 6.2 L Albumin 2.9 L Urine Color Urine Appearance Urine pH Ur Specific [place] Urine Protein Urine Glucose (UA) Urine Ketones Urine Blood Urine Nitrite Urine Bilirubin Urine Urobilinogen Ur Leukocyte Esterase Opiates Screen Negative Methadone Screen Negative Barbiturate Screen Negative Phencyclidine Screen Negative Ur Amphetamines Screen Negative MDMA (Ecstasy) Screen Negative Benzodiazepines Screen Negative Cocaine Screen Negative U Marijuana (THC) Screen Negative COVID-19 (LIZZIE) Active Medications Generic Name Dose Route Start Last Admin Trade Name Freq PRN Reason Stop Dose Admin Acetaminophen 650 mg 03/21/20 14:53 03/21/20 15:01 Tylenol - PO 650 mg Q6H PRN Administration PAIN LEVEL 4 - 6 Atorvastatin Calcium 40 mg 03/21/20 22:00 03/21/20 23:11 Lipitor - PO 40 mg HS RAUDEL Administration Haloperidol 0.5 mg 03/21/20 22:00 03/22/20 11:45 Haldol - PO 0.5 mg BID RAUDEL Administration Heparin Sodium (Porcine) 5,000 unit 03/21/20 06:00 03/22/20 07:03 Heparin - SQ 5,000 unit TID RAUDEL Administration Sodium Chloride 1,000 mls @ 83 mls/hr 03/21/20 05:30 03/22/20 06:42 Normal Saline - IV Not Given ASDIR RAUDEL Sertraline HCl 25 mg 03/21/20 17:15 03/22/20 10:30 Zoloft - PO 25 mg DAILY RAUDEL Administration ASSESSMENT/PLAN: 59 Y M w a PMH of anxiety, paranoia, HLD, and pre-Diabetes(home med: metformin), presents s/p unwitnessed fall and admitted for a syncope work up. # syncope # Vertigo - Patient started to feel lightheadedness vomited multiple times, NBNB when he was sitting up from laying down - Unable to obtain Orthostatic vitals due to active nausea and vomiting, patient reports today that the room is spinning around him and worse with turning head to he left side. - Started a Trial of Meclizine 25 mg TID, will try to evaluate with Valente-hallpike maneuver, once stable - Denies any recent Prior URI - cardiology, Dr. Dos Santos, is following - EKG shows: NSR with J point elevation in V4,5,6. trop negative x 2 - carotid Doppler and Echo: WNL - Head CT: no acute pathology - MRI: no evidence of cerebellar infarct #Nausea/vomiting - last night no episodes of nausea vomiting, no nausea vomiting at rest but during my examination patient experienced nausea, sensation of room spinning with head turning and started to vomit, Most likely caused by vertigo - KUB: No acute pathology - will continue IVF, and monitor electrolytes #Left elbow pain s/p fall - moderate TTP and erythema - CT UE: no acute fractures #Hx of Paranoia #Anxiety - Home meds: Haldol 0.5 mg BID, Zoloft 25mg QD - Consulted Psych for further recs regarding his medical regimen #Hx of HLD - Continue Lipitor 40 mg QD #Hx of pre-Diabetes - holding home med for now(metformin 500mg QD) - HbA1c 6.0 DVTppx - Heparin Sq FEN - NS @83 mls/hr - Will continue to monitor electrolytes - Full liquid diet for now, vomiting Dispo - will continue to monitor in Tele Visit type - Emergency Visit Emergency Visit: Yes ED Registration Date: 03/21/20 Care time: The patient presented to the Emergency Department on the above date and was hospitalized for further evaluation of their emergent condition. - New Patient This patient is new to me today: No - Critical Care Critical Care patient: No - Discharge Referral Referred to [facility] Med P.C.: No ATTENDING PHYSICIAN STATEMENT I saw and evaluated the patient. I reviewed the resident's note and discussed the case with the resident. I agree with the resident's findings and plan as documented. SUBJECTIVE: OBJECTIVE: ASSESSMENT AND PLAN:
[2020-03-22] MEDS: MECLIZINE HCL 25 MG TABLET (FP) PO SCH ×2 (16:56→22:05)
--- NOTE | 2020-03-22 17:34 | PN ---
Teaching Attending Note Name of Resident: Lanny Millan ATTENDING PHYSICIAN STATEMENT I saw and evaluated the patient. I reviewed the resident's note and discussed the case with the resident. I agree with the resident's findings and plan as documented. SUBJECTIVE: seen at around 9 am , he complained of no N/V, no light headedness or dizziness. no Cp or fever . no abd pain. he felt much better . contt o have pain in L elbow. later, he was seen by PT and became very dizzy and diaphoretic with sitting. later, dr. Millan saw patient who complained of vertigo( spinning instead of light headedness ), even with head position changes in bed. [place] Halpike could not be done as he can't sit without vertigo OBJECTIVE: NAD CV: RRR, no MRG Lungs: CTAB ABd: NT, ND, NL BS Ext: No edema or erythema on upper or lower extremitis . Neuro: EOMI, no facial droop, nl facial sensation, round pupils. tongue at mid line. Strength: RUE: 5/5 shoulder shrug, shoulder abduction and flexion, biceps, and triceps, and normal hand hand paster. LUE: 5/5 shoulder shrug. limited mobility to LUE due to elbow pain, hand hand paster normal . L elbow with mild hyperpigmentation on elbow, tenderness to palpation. limited extension to the elbow ASSESSMENT AND PLAN: 59 y/o man with unclear medical history and no medical follow up who presented with syncopal episode while walking [place] at night . 1- Syncope. declined tele over night and took it off. echo, CUS, MRI, reviewed, . holter or event monitor as out pt . f/u with card 2- Vertigo: MRI neg for posterior stroke. neuro exam remains non-focal. likely he has BPV with position changes. - will ask about recent URI - start meclizine - refer to ENT for Eply. - PT when able to - cont IVF for now 3- L elbow pain, CT obtained due to persistent pain, no Fx was found. No joint effusion 4- N/V : resolved. ? due to BPV . Nl KUB 5- urinary retention yesterday , resolved after straight cath . encourage mobility if possible UA neg 6- Leukocysotsis resolved . no source . No ABx 4- Hyperkalemia: hemolysed sample. repeat NL 5- pre-diabetes cont home metformin at ds 6- Schizoaffective DO: appreciate psych eval and Recs. team d/w his son yesterday and confiormed he is on haldol and zoloft. - cont those meds unable to ambulate due to vertigo. Not safe for dc . will cont to monitor
[2020-03-22] MEDS: ATORVASTATIN CA 40 MG TABLET (FP) PO SCH (22:05)
[2020-03-23] MEDS: SODIUM CHLORIDE 1,000 ML IV SCH ×2 (02:03→09:38)
[2020-03-23 02:30] VITALS: TEMP 98.4
[2020-03-23] MEDS: MECLIZINE HCL 25 MG TABLET (FP) PO SCH ×2 (07:03→13:18)
[2020-03-23] MEDS: HEPARIN NA (PORCINE) 5,000 UNITS/ML 1ML VIAL SQ SCH ×2 (07:03→13:19)
[2020-03-23 07:06] LABS: BASO % 0.4 % (0-2.0); EOS % 0.4 % (0-4.5); HEMATOCRIT 40.6 % (35.4-49); HEMOGLOBIN 13.6 GM/dL (11.7-16.9); LYMPH % 41.3 % (8-40); MCH 29.7 pg (25.7-33.7); MCHC 33.6 g/dl (32.0-35.9); MEAN CELL VOLUME 88.5 fl (80-96); MEAN PLT VOLUME 9.5 fl (7.5-11.1); MONO % 9.8 % (3.8-10.2); NEUT % 48.1 % (42.8-82.8); PLATELET COUNT 181 K/MM3 (134-434); RBC 4.59 M/mm3 (4.00-5.60); RDW 14.5 % (11.9-15.9); WHITE BLOOD COUNT 7.1 K/mm3 (4.0-10.0)
[2020-03-23 07:35] LABS: ALBUMIN 2.9 g/dl (3.4-5.0); BILIRUBIN,TOTAL 0.7 mg/dL (0.2-1); BLOOD UREA NITROGEN 6.6 mg/dL (7-18); CALCIUM 8.2 mg/dL (8.5-10.1); CREATININE 0.7 mg/dL (0.55-1.3); MAGNESIUM 2.1 mg/dL (1.8-2.4); POTASSIUM 3.8 mmol/L (3.5-5.1); TOT PROT 5.9 g/dl (6.4-8.2)
[2020-03-23] MEDS ORDERED: PT OWN MED DRAWER 7, Y5N ONE (08:30)
--- NOTE | 2020-03-23 08:51 | PN ---
Progress Note, Physician Chief Complaint: Events noted Not in distress History of Present Illness: Patient was seen and examined. Awake and alert. Chart was reviewed Denies chest pain, SOB or palpitations - Current Medication List Current Medications: Active Medications Acetaminophen (Tylenol -) 650 mg PO Q6H PRN PRN Reason: PAIN LEVEL 4 - 6 Last Admin: 03/21/20 15:01 Dose: 650 mg Documented by: Atorvastatin Calcium (Lipitor -) 40 mg PO HS [facility] Last Admin: 03/22/20 22:05 Dose: 40 mg Documented by: Haloperidol (Haldol -) 0.5 mg PO BID [facility] Last Admin: 03/22/20 22:04 Dose: 0.5 mg Documented by: Heparin Sodium (Porcine) (Heparin -) 5,000 unit SQ TID [facility] Last Admin: 03/23/20 07:03 Dose: 5,000 unit Documented by: Sodium Chloride (Normal Saline -) 1,000 mls @ 83 mls/hr IV ASDIR [facility] Last Admin: 03/23/20 02:03 Dose: 83 mls/hr Documented by: Meclizine HCl (Antivert -) 25 mg PO TID [facility] Last Admin: 03/23/20 07:03 Dose: 25 mg Documented by: Sertraline HCl (Zoloft -) 25 mg PO DAILY [facility] Last Admin: 03/22/20 10:30 Dose: 25 mg Documented by: - Objective Vital Signs: Vital Signs Temperature 98.4 F 03/23/20 02:00 Pulse Rate 68 03/23/20 06:00 Respiratory Rate 18 03/23/20 06:00 Blood Pressure 128/72 03/23/20 06:00 O2 Sat by Pulse Oximetry (%) 94 L 03/23/20 02:00 Neck: Yes: Supple Cardiovascular: Yes: Regular Rate and Rhythm, S1, S2 Respiratory: Yes: CTA Bilaterally Gastrointestinal: Yes: Normal Bowel Sounds, Soft. No: Tenderness Edema: No Additional Findings/Remarks: - Review of Systems Constitutional: denies: Chills, Fever Cardiovascular: denies: Shortness of Breath. denies: Chest Pain, Palpitations Respiratory: denies: Cough, SOB. denies: Hemoptysis, Orthopnea, PND, Wheezing Gastrointestinal: denies: Abdominal Pain, Constipation, Diarrhea, Melena, Nausea, Rectal Bleeding, Vomiting Musculoskeletal: denies: Back Pain, Joint Pain Neurological: denies: Dizziness, Headache, Seizure, Syncope Labs: CBC, BMP 03/23/20 06:35 03/23/20 06:35 INR, PTT INR 1.01 (0.83-1.09) 03/21/20 01:53 Problem List - Problems (1) Hyperlipidemia Code(s): E78.5 - HYPERLIPIDEMIA, UNSPECIFIED Qualifiers: Hyperlipidemia type: pure hypercholesterolemia Qualified Code(s): E78.00 - Pure hypercholesterolemia, unspecified; E78.0 - Pure hypercholesterolemia (2) Syncope and collapse Code(s): R55 - SYNCOPE AND COLLAPSE (3) Type 2 diabetes mellitus Code(s): E11.9 - TYPE 2 DIABETES MELLITUS WITHOUT COMPLICATIONS Qualifiers: Diabetes mellitus medical terminologist insulin use: without [place] use Diabetes mellitus complication status: without complication Qualified Code(s): E11.9 - Type 2 diabetes mellitus without complications Assessment/Plan 1. Syncope - orthostatic hypotension vs. vasovagal 2. Type 2 DM 3. Hyperlipidemia 4. Vertigo PLAN: 1. traffic monitor specialist for bradyarrhythmia/pauses - no evens 2. No specific cardiac therapy or intervention at this time 3. Continue Atorvastatin therapy 4. Meclizine Further cardiac monitoring can be done as outpatient if needed. Discharge planning Giovany Marcus MD
[2020-03-23 09:07] VITALS: BP 132/84; PULSE 72
[2020-03-23] MEDS: SERTRALINE HCL 25 MG TABLET (FP) PO SCH (09:09)
[2020-03-23] MEDS: HALOPERIDOL 0.5 MG TABLET PO SCH (09:09)
--- NOTE | 2020-03-23 14:34 | PN ---
Progress Note (short form) - Note Progress Note: Subjective: He feels much better , minimal dizziness with position change in bed. he walked to bathroom this am with RN. no nausea. no vomiting Objective: Vital Signs: Last Vital Signs Temp Pulse Resp BP Pulse Ox 98.4 F 72 18 132/84 96 03/23/20 09:03 03/23/20 09:03 03/23/20 09:03 03/23/20 09:03 03/23/20 09:03 Intake & Output 03/20/20 03/21/20 03/22/20 03/23/20 23:59 23:59 23:59 23:59 Intake Total 873 1116 996 Output Total 800 450 Balance 73 1116 546 Weight 160 lb OBJECTIVE: NAD . CV: RRR, no MRG Lungs: CTAB Ext: No edema or erythema on upper or lower extremitis . Nose to finger NL [place] Halpike + with vertigo and nystagmus on L side ASSESSMENT AND PLAN: 59 y/o man with unclear medical history and no medical follow up who presented with syncopal episode while walking [place] at night . 1- Syncope. f/u with card for holter monitor if needed 2- Vertigo: due to BPV. [place] Halpike + on L side . meclizine helped. - cont Meclizine PRN - refer to ENT - walked with PT and needs family support at home 3- L elbow pain, No Fx on CT 4- Leukocysotsis resolved .U cx neg 5- pre-diabetes cont home metformin 6- Schizoaffective DO: - cont those meds Spoke to his Son Sharlene, he was updated on condition and diagnosis . discharge instructions were discussed with him. D/W delinquency prevention social worker Amber, who will try to arrange for [facility] for PT is applicable DC home Visit type - Emergency Visit Emergency Visit: Yes ED Registration Date: 03/21/20 Care time: The patient presented to the Emergency Department on the above date and was hospitalized for further evaluation of their emergent condition. - New Patient This patient is new to me today: No - Critical Care Critical Care patient: No
--- NOTE | 2020-03-24 17:08 | DS ---
Physical Exam: SUBJECTIVE: As per Dr. Hair' note OBJECTIVE: PHYSICAL EXAM:As per Dr. Hair' note LABS:As per Dr. Hair' note HOSPITAL COURSE: Date of Admission:03/21/20 59 Y M w a PMH of anxiety, paranoia, HLD, and pre-Diabetes(home med: metformin), presents s/p unwitnessed fall and admitted for a syncope/vertigo work up. Patient started to feel lightheadedness vomited multiple times, NBNB when he was sitting up from laying down. EKG shows: NSR with J point elevation in V4,5,6. trop negative x 2. carotid Doppler and Echo: WNL. Head CT: no acute pathology. MRI: no evidence of cerebellar infarctUnable to obtain Orthostatic vitals due to active nausea and vomiting, patient reported that the room is spinning around him and worse with turning head to he left side. Started a Trial of Meclizine 25 mg TID, improved, [place] Halpike + on L side, referred to ENT. Left elbow pain s/p fall. moderate TTP and erythema. CT UE: no acute fractures Patient improved with meclizine and is now stable for discharge at home, discharged him with VNS for PT and with the following instruction, referrals and prescriptions Date of Discharge: 03/24/20 Minutes to complete discharge: 36 Discharge Summary Problems reviewed: Yes Reason For Visit: SYNCOPE AND COLLAPSE Condition: Improved - Instructions Diet, Activity, Other Instructions: you have benign positional vertigo . it is a condition that can cause vertigo - please be careful when ambulating - use meclizine as needed fro vertigo - No driving until cleared by your doctor. - will refer you to an ENT doctor to evaluate and treat your condition. - continue your home medications as per your routine - avoid climbing ladders , be careful on stairs, and always ask for family help and support - please visit your primary care doctor in a week . if you don't have one will refer you to dr. Mirza mccord ! Referrals: Gideon Blue MD [Staff Physician] - 1 Week Robbi Aj MD [Staff Physician] - 1 Week Disposition: VNS/HOME HEALTH CARE - Home Medications Comprehensive Discharge Medication List: Ambulatory Orders Atorvastatin Ca [Lipitor] 40 mg PO HS 03/21/20 Haloperidol [Haldol -] 0.5 mg PO BID 03/21/20 Metformin HCl [Glucophage] 500 mg PO DAILY 03/21/20 Sertraline HCl 25 mg PO DAILY 03/21/20 Meclizine HCl [Antivert -] 25 mg PO TID PRN #20 tablet 03/23/20 This patient is new to me today: No Emergency Visit: Yes ED Registration Date: 03/21/20 Care time: The patient presented to the Emergency Department on the above date and was hospitalized for further evaluation of their emergent condition. Critical Care patient: No - Discharge Referral Referred to [facility] No ATTENDING PHYSICIAN STATEMENT I saw and evaluated the patient. I reviewed the resident's note and discussed the case with the resident. I agree with the resident's findings and plan as documented. SUBJECTIVE: OBJECTIVE: ASSESSMENT AND PLAN:
== END 2020-03-23 15:28 | disposition home health service (06) | DRG 149 ==
LOC: JER 00:52 → JERBED 03:42 → J4W 05:38
PROVIDERS: ADMIT Internal Medicine; ATTEND Internal Medicine
DX: H81.10 Benign paroxysmal vertigo, unspecified ear (principal); E87.5 Hyperkalemia; F25.9 Schizoaffective disorder, unspecified; F22 Delusional disorders; F41.9 Anxiety disorder, unspecified; E78.5 Hyperlipidemia, unspecified; F17.210 Nicotine dependence, cigarettes, uncomplicated; I95.1 Orthostatic hypotension; R11.2 Nausea with vomiting, unspecified; D72.829 Elevated white blood cell count, unspecified; R73.03 Prediabetes; Z79.84 Long term (current) use of oral hypoglycemic drugs; M25.522 Pain in left elbow; R33.9 Retention of urine, unspecified
CPT/HCPCS: 36415; 70450-TC; 70551-TC; 71045-TC-FY; 73070-TC-LT-FY; 73090-TC-LT-FY; 73200-TC-RT; 74018-TC-FY; 80053; 80061; 80307; 81003; 82550; 82553; 83036; 83721; 83735; 83880; 84100; 84443; 84484; 85025; 85027; 85610; 85730; 87086; 93005; 93010; 93306-TC; 93880-TC; 97116-GP; 97161-GP; 99285-25; J0131; J1644; U0003

== ENCOUNTER 2021-01-25 04:07 | Inpatient (IN) | payer OTHER ==
[2021-01-25 04:20] VITALS: BMI 30.4
[2021-01-25 05:19] LABS: VENOUS BASE EXCESS -6.2 mmol/L (-2-2); VENOUS O2 SATURATION 28.5 % (70-80); VENOUS PCO2 53.4 mmHg (38-52); VENOUS PH 7.231 (7.310-7.410)
[2021-01-25 05:22] LABS: BASO % 0.2 % (0-2.0); EOS % 0.1 % (0-4.5); HEMOGLOBIN 13.7 GM/dL (11.7-16.9); LYMPH % 13.6 % (8-40); MCH 30.2 pg (25.7-33.7); MCHC 33.5 g/dl (32.0-35.9); MEAN PLT VOLUME 9.6 fl (7.5-11.1); MONO % 4.8 % (3.8-10.2); NEUT % 81.3 % (42.8-82.8); PLATELET COUNT 188 10^3/uL (134-434); RBC 4.55 M/mm3 (4.00-5.60); RDW 14.9 % (11.9-15.9); WHITE BLOOD COUNT 11.4 K/mm3 (4.0-10.0)
[2021-01-25 05:25] LABS: INR 1.08 (0.83-1.09); PROTHROMBIN TIME (PATIENT) 13.2 SEC (9.7-13.0)
[2021-01-25 05:27] LABS: ACTIVATED PTT 27.6 SECONDS (25.2-36.5)
[2021-01-25 05:37] LABS: CHLORIDE 110 mmol/L (98-107); SODIUM 142 mmol/L (136-145)
[2021-01-25 05:39] LABS: ALBUMIN 3.3 g/dl (3.4-5.0); ANION GAP 8 MMOL/L (8-16); BLOOD UREA NITROGEN 14.2 mg/dL (7-18); CALCIUM 8.2 mg/dL (8.5-10.1); CO2 25 mmol/L (21-32); GLUCOSE,RANDOM 112 mg/dL (74-106)
[2021-01-25 05:41] LABS: CREATININE 1.2 mg/dL (0.55-1.3); SGOT/AST 23 U/L (15-37); SGPT/ALT 38 U/L (13-61)
[2021-01-25 05:43] LABS: PHOSPHOROUS 2.2 mg/dL (2.5-4.9)
[2021-01-25 05:44] LABS: BILIRUBIN,TOTAL 0.4 mg/dL (0.2-1); TOT PROT 6.6 g/dl (6.4-8.2)
[2021-01-25 05:45] LABS: ALK PHOS 94 U/L (45-117)
[2021-01-25 06:04] LABS: LACTIC ACID 3.1 mmol/L (0.4-2.0)
[2021-01-25] MEDS ORDERED: SODIUM CHLORIDE 0.9% 500 ML INFUS.BAG IV ONE ×3 (06:14→19:05)
[2021-01-25] MEDS: PIPERACILLIN/TAZOB 3.375 GM 3.375 GM in DEXTROSE 5%-WATER - 50 ML IVPB ONE ×2 (06:20→06:39)
[2021-01-25] MEDS ORDERED: VANCOMYCIN 1 GM in D5W (PRE-DOCKED) 1,000 MG/250 ML IVPB ONE (06:21)
[2021-01-25] MEDS ORDERED: PIPERACILLIN/TAZOB 3.375 GM 3.375 GM/50 ML BAG IVPB ONE (06:28)
[2021-01-25] MEDS ORDERED: VANCOMYCIN 1 GRAM (PRE-DOCKED) 1,000 MG/250 ML BAG IVPB ONE (06:28)
[2021-01-25 13:00] LABS: URINE APPEARANCE CLEAR; URINE BILIRUBIN NEGATIVE (NEGATIVE); URINE COLOR YELLOW; URINE GLUCOSE (UA) NEGATIVE (NEGATIVE); URINE KETONE NEGATIVE (NEGATIVE); URINE LEUK ESTERASE NEGATIVE (NEGATIVE); URINE NITRITE NEGATIVE (NEGATIVE); URINE PROTEIN NEGATIVE (NEGATIVE); URINE UROBILINOGEN 0.2 mg/dL (0.2-1.0)
[2021-01-25] MEDS ORDERED: ALBUTEROL SO4 2.5/IPRATROPIUM 0.5 INH SOL 3 ML VIAL.NEB. NEB PRN (16:21)
[2021-01-25] MEDS ORDERED: methylPREDNISolone NA SUCC 40 MG/1 ML VIAL ONE (20:23)
[2021-01-25] MEDS: methylPREDNISolone NA SUCC 40 MG/1 ML VIAL IVPUSH SCH (20:49)
[2021-01-26] MEDS ORDERED: methylPREDNISolone NA SUCC 40 MG/1 ML VIAL ONE (02:07)
[2021-01-26] MEDS: methylPREDNISolone NA SUCC 40 MG/1 ML VIAL IVPUSH SCH (02:12)
[2021-01-26 08:03] LABS: BASO % 0.1 % (0-2.0); HEMATOCRIT 41.1 % (35.4-49); HEMOGLOBIN 13.9 GM/dL (11.7-16.9); LYMPH % 16.7 % (8-40); MCH 30.2 pg (25.7-33.7); MCHC 33.8 g/dl (32.0-35.9); MEAN CELL VOLUME 89.2 fl (80-96); MEAN PLT VOLUME 9.7 fl (7.5-11.1); MONO % 1.4 % (3.8-10.2); NEUT % 81.8 % (42.8-82.8); PLATELET COUNT 180 10^3/uL (134-434); RDW 14.6 % (11.9-15.9); WHITE BLOOD COUNT 6.3 K/mm3 (4.0-10.0)
[2021-01-26 08:05] VITALS: TEMP 98.4
[2021-01-26 08:29] LABS: ALBUMIN 3.2 g/dl (3.4-5.0); CALCIUM 8.1 mg/dL (8.5-10.1)
[2021-01-26 08:31] LABS: BLOOD UREA NITROGEN 11.3 mg/dL (7-18)
[2021-01-26 08:33] LABS: CREATININE 0.8 mg/dL (0.55-1.3)
[2021-01-26 08:34] LABS: BILIRUBIN,TOTAL 0.6 mg/dL (0.2-1); TOT PROT 6.7 g/dl (6.4-8.2)
[2021-01-26] MEDS ORDERED: CYANOCOBALAMIN (VITAMIN B-12) 1000 MCG/1 ML VIAL IM ONE (11:30)
[2021-01-26 12:25] VITALS: BP 113/88; PULSE 74
== END 2021-01-26 19:54 | disposition left against medical advice (07) | DRG 312 ==
LOC: JER 04:07 → JERBED 06:10
PROVIDERS: ADMIT Family Medicine
DX: R55 Syncope and collapse (principal); J44.9 Chronic obstructive pulmonary disease, unspecified; E78.5 Hyperlipidemia, unspecified; N40.0 Benign prostatic hyperplasia without lower urinary tract symptoms; R09.02 Hypoxemia; H81.10 Benign paroxysmal vertigo, unspecified ear; F17.210 Nicotine dependence, cigarettes, uncomplicated; R73.03 Prediabetes; F20.9 Schizophrenia, unspecified; Z85.118 Personal history of other malignant neoplasm of bronchus and lung
CPT/HCPCS: 36415; 70450-TC; 71045-TC-FY; 71275-TC; 72131-TC; 80053; 81003; 82550; 82607; 82728; 82803; 82962; 83605; 83615; 83735; 84100; 84484; 85025; 85379; 85610; 85651; 85730; 86140; 86780; 87040; 87086; 87804; 87807; 87899; 93005; 93010; 93880-TC; 99285-25; C9803; Q9967; U0003; U0005

== ENCOUNTER 2021-08-20 12:07 | Emergency (ER) | payer OTHER ==
[2021-08-20 12:20] VITALS: TEMP 98; BMI 27.1
[2021-08-20] MEDS ORDERED: ACETAMINOPHEN 325 MG TABLET (FP) PO ONE (13:37)
[2021-08-20] MEDS ORDERED: ACETAMINOPHEN 325 MG TABLET (FP) ONE (13:38)
[2021-08-20 13:49] LABS: BASO % 0.3 % (0-2.0); EOS % 0.1 % (0-4.5); HEMOGLOBIN 14.3 GM/dL (11.7-16.9); LYMPH % 9.5 % (8-40); MCH 29.6 pg (25.7-33.7); MCHC 33.3 g/dl (32.0-35.9); MEAN CELL VOLUME 88.8 fl (80-96); MEAN PLT VOLUME 8.8 fl (7.5-11.1); MONO % 6.3 % (3.8-10.2); NEUT % 83.8 % (42.8-82.8); PLATELET COUNT 208 10^3/uL (134-434); RBC 4.84 M/mm3 (4.00-5.60); RDW 15.3 % (11.9-15.9); WHITE BLOOD COUNT 15.5 K/mm3 (4.0-10.0)
[2021-08-20 14:18] LABS: ALBUMIN 3.4 g/dl (3.4-5.0); BLOOD UREA NITROGEN 13.9 mg/dL (7-18); CALCIUM 8.4 mg/dL (8.5-10.1)
[2021-08-20 14:21] LABS: CREATININE 0.9 mg/dL (0.55-1.3)
[2021-08-20 14:23] LABS: BILIRUBIN,TOTAL 0.7 mg/dL (0.2-1); TOT PROT 6.8 g/dl (6.4-8.2)
[2021-08-20 17:06] VITALS: BP 139/86; PULSE 77
== END 2021-08-20 17:06 | disposition home or self-care (01) ==
LOC: JER 12:07
DX: R55 Syncope and collapse (principal)
CPT/HCPCS: 36415; 70450-TC; 80053; 84484; 85025; 93005; 93010; 99285-25

== ENCOUNTER 2022-10-26 23:48 | Observation (INO) | payer OTHER ==
[2022-10-27 02:12] LABS: HEMATOCRIT 42.2 % (35.4-49); HEMOGLOBIN 14.4 GM/dL (11.7-16.9); MCH 29.4 pg (25.7-33.7); MCHC 34.2 g/dl (32.0-35.9); MEAN CELL VOLUME 85.9 fl (80-96); MEAN PLT VOLUME 9.1 fl (7.5-11.1); PLATELET COUNT 233 10^3/uL (134-434); RBC 4.91 M/mm3 (4.00-5.60); RDW 15.2 % (11.9-15.9); WHITE BLOOD COUNT 9.5 K/mm3 (4.0-10.0)
[2022-10-27 02:16] LABS: INR 1.03 (0.83-1.09); PROTHROMBIN TIME (PATIENT) 11.9 SEC (9.7-13.0)
[2022-10-27 02:28] LABS: POTASSIUM 4.2 mmol/L (3.5-5.1)
[2022-10-27 02:30] LABS: CALCIUM 8.8 mg/dL (8.5-10.1)
[2022-10-27 02:31] LABS: ALBUMIN 3.3 g/dl (3.4-5.0); BLOOD UREA NITROGEN 13.2 mg/dL (7-18)
[2022-10-27 02:35] LABS: BILIRUBIN,TOTAL 0.4 mg/dL (0.2-1); TOT PROT 6.9 g/dl (6.4-8.2)
[2022-10-27 02:50] LABS: BASO % 0.4 % (0-2.0); EOS % 0.3 % (0-4.5); LYMPH % 36.3 % (8-40); MONO % 8.2 % (3.8-10.2); NEUT % 54.8 % (42.8-82.8)
[2022-10-27 04:17] VITALS: BMI 24.2
[2022-10-27] MEDS ORDERED: ASPIRIN 81 MG CHEWABLE TABLETS PO ONE (08:00)
[2022-10-27] MEDS ORDERED: ATORVASTATIN CA 80 MG TABLET (FP) PO ONE (08:15)
[2022-10-27] MEDS ORDERED: NICOTINE 14 MG/24 HOURS TOPICAL PATCH TD SCH (10:00)
[2022-10-27] MEDS ORDERED: ALPRAZolam 1 MG TABLET PO ONE (11:00)
[2022-10-27] MEDS ORDERED: SODIUM CHLORIDE 0.45% 1,000 ML IV SCH (11:00)
[2022-10-27 12:34] VITALS: BP 118/76; PULSE 86; RESP 16; TEMP 98
== END 2022-10-27 19:18 | disposition home or self-care (01) ==
LOC: FER 23:48 → MERGE 10-27 03:27 → FM/S 10-27 03:27
PROVIDERS: ADMIT Internal Medicine
PROC: 3E0337Z Introduction of Electrolytic and Water Balance Substance into Peripheral Vein, Percutaneous Approach (ICD-10-PCS; principal; 2022-10-27)
DX: E87.8 Other disorders of electrolyte and fluid balance, not elsewhere classified (principal); R53.1 Weakness; E87.29 Other acidosis; R30.0 Dysuria; I10 Essential (primary) hypertension; E78.5 Hyperlipidemia, unspecified; F25.9 Schizoaffective disorder, unspecified; F17.210 Nicotine dependence, cigarettes, uncomplicated
CPT/HCPCS: 0241U-QW; 36415; 70450-TC; 70551-TC; 71045-TC-FY; 80053; 82962; 83036; 85025; 85610; 85730; 86850; 86900; 86901; 93005; 93306-TC; 99285-25; G0378